=== PATIENT | female | born 1980 | race Caucasian/White ===

== ENCOUNTER 2016-08-31 05:40 | Emergency (ER) ==
[2016-08-31] MEDS ORDERED: ROCEPHIN IM ONE (06:24)
[2016-08-31] MEDS ORDERED: XYLOCAINE-MPF 1% INJ ONE (06:24)
[2016-08-31 06:48] LABS: URINE MICRO REVIEW NEEDED? NO; URINE SOURCE CLEAN CATCH
[2016-08-31 06:53] LABS: BILIRUBIN URINE NEGATIVE (NEGATIVE); BLOOD URINE NEGATIVE (NEGATIVE); COLOR YELLOW; GLUCOSE URINE NEGATIVE (NEGATIVE); LEUKOCYTES URINE LARGE (NEGATIVE); NITRITE URINE NEGATIVE (NEGATIVE); PROTEIN URINE NEGATIVE (NEGATIVE); SP GRAVITY URINE 1.019; TURBIDITY URINE HAZY (CLEAR); UROBILINOGEN URINE NORMAL (NORMAL)
[2016-08-31 06:55] LABS: UR EPITHELIAL CELLS <10 /HPF (<10); URINE BACTERIA 1+ /HPF; URINE CULTURE NEEDED? YES; URINE RBC <10 /HPF (<10)
--- NOTE | 2016-08-31 07:33 | PROVIDER DOCUMENTATION ---
HPI-Female /OB/Breast - General Chief Complaint: Female Stated Complaint: "FEMALE ISSUES" Time Seen by Provider: 08/31/16 06:10 Source: reports: patient Allergies/Adverse Reactions: Patient Allergies Allergy/AdvReac Type Severity Reaction Status Date / Time No Known Allergies Allergy Verified 08/31/16 05:56 - History of Present Illness-Female /OB Nature of Presenting Problem: Reports lower abd cramping and vag discharge with fishy order. Reports she has been with a new partner since 3-4 months ago. Denies concerns for HIV/ hepatitis. Denies F/C/N/V. Not sure preg or not. Location of complaint: reports: suprapubic. denies: generalized flank, groin, urethral Radiation: reports: none Severity in ED: reports: mild Onset/Duration: reports: 2 days ago Timing: reports: still present Context/Activities at Onset: reports: none Vaginal Symptoms: reports: discharge, foul odor. denies: abnormal bleeding, itching, pain with intercourse, passing clots/tissue Related Symptoms: reports: pelvic pain. denies: vaginal fluid leakage , uterine contractions Leakage of Fluid: none Sexual intercourse history: reports: Single Partner Modifying Factors: improves with: nothing Associated Symptoms: reports: denies symptoms Similar Symptoms Previously?: No Recently seen or treated by another doctor?: No Review of Systems - Adult - REVIEW OF SYSTEMS - ADULT Constitutional: reports: no symptoms reported Eyes: reports: no symptoms reported Ears, Nose, Mouth & Throat: reports: no symptoms reported Cardiovascular: reports: no symptoms reported Respiratory: reports: no symptoms reported Gastrointestinal: reports: see HPI, abdominal pain. denies: nausea, vomiting Genitourinary: reports: see HPI. denies: dysuria, discharge, flank pain, hematuria, hesitency, urinary retention Integumentary: reports: no symptoms reported Neurological: reports: no symptoms reported All Other Systems: Reviewed and Negative Past History - Adult - PAST MEDICAL HISTORY-ADULT Major Childhood Illnesses: reports: denies history Cardiovascular: reports: denies history Respiratory: reports: asthma Gastrointestinal: reports: denies history Obstetrical/Gynecological: reports: denies history Genitourinary: reports: denies history Musculoskeletal: reports: denies history Neurological: reports: denies history Endocrine/Immune: reports: denies history Other Conditions: reports: denies history - PRIOR SURGERIES/PROCEDURES Surgical/Procedure History: reports: BTL, tonsillectomy, orthopedic (extremity) - IMMUNIZATION STATUS Childhood Immunizations: See Nurse Assessment Flu Vaccine: See Nurse Assessment - FAMILY HISTORY Family History: reviewed, not pertinent Physical Exam-General - PHYSICAL EXAM-ADULT Initial Vital Signs Reviewed: Yes - CONSTITUTIONAL General Appearance: appears well, alert, no apparent distress - HEAD, EARS, NOSE, MOUTH & THROAT HENMT: normocephalic/atraumatic, moist mucous membranes, normal ENT inspection, TMs normal - NECK Neck: non-tender, full range of motion - RESPIRATORY Respiratory: chest non-tender, lungs clear, normal breath sounds - CARDIOVASCULAR Cardiovascular: normal peripheral pulses, regular rate, rhythm - GASTROINTESTINAL (ABDOMEN) Abdominal Exam: non tender, soft, no organomegaly, distended, guarding. negative: rigid, rebound, tenderness, hepatomegaly, spleenomegaly, McBurney's point tenderness, Barnard's sign - LYMPHATIC Lymphatic: no adenopathy - MUSCULOSKELETAL Back Exam: normal inspection, no CVA tenderness Extremity: normal range of motion, non-tender, normal gait - SKIN Integumentary: normal color, normal turgor - NEUROLOGIC Neurologic: no motor/sensory deficits, abnormal gait - PSYCHIATRIC Psych/Mental Status: normal mood/affect, normal thought content, normal thought process, oriented x 3 Departure - Departure Time of Disposition Order: 07:33 DIAGNOSIS: UTI (urinary tract infection) Qualifiers: Urinary tract infection type: acute cystitis Hematuria presence: without hematuria Qualified Code(s): N30.00 - Acute cystitis without hematuria Vaginitis Qualifiers: Chronicity: acute Qualified Code(s): N76.0 - Acute vaginitis Disposition: HOME 01 Certified Medical Emergency: Emergent Condition: Stable Additional Instructions: Follow up with regular MD in 2-3 days. Return to ER as needed. Plenty of oral fluids. Prescriptions: Sulfamethoxazole/Trimethoprim [Bactrim Ds Tablet] 1 each PO BID #20 tablet Metronidazole [Flagyl] 500 mg PO BID #14 tablet
[2016-08-31] MEDS ORDERED: ZITHROMAX PO ONE (07:36)
[2016-08-31 08:07] VITALS: BP 127/77
== END 2016-08-31 08:07 | disposition home or self-care (01) ==
LOC: ED 05:40
DX: N30.00 Acute cystitis without hematuria (principal); N76.0 Acute vaginitis; R10.30 Lower abdominal pain, unspecified; N89.8 Other specified noninflammatory disorders of vagina; R10.9 Unspecified abdominal pain; R10.2 Pelvic and perineal pain
CPT/HCPCS: 81001; 81025; 87077; 87088; 87186; 96372; J0696